=== PATIENT | female | born 1955 ===

== ENCOUNTER → 2018-06-23 09:32 | Day surgery (SDC) | payer BC ==
[~2018-06-23 09:32] MED LIST: Buffered Lidocaine 0.9% SYRIN* 5 ML/SYR SYRINGE INTRADERM ONE; Buffered Lidocaine 0.9% SYRIN* 5 ML/SYR SYRINGE ONE; Clindamycin 900 MG/D5W BAG(*) 900 MG/50 ML BAG IVPB ONE; DiMENhydriNATE IV* 50 MG/ML VIAL IV PUSH PRN; EPHEDrine (Pressors)* 50 MG/ML VIAL ONE; HYDROcodone/ACETAMIN 5-325 MG* 1 TAB ONE; HYDROcodone/ACETAMIN 5-325 MG* 1 TAB PO PRN; Ketorolac INJ* 30 MG/ML 1 ML VIAL ONE; Lidocaine 2% PF * 5 ML VIAL ONE; Lidocaine 2% PF* 10 ML AMP ONE; Midazolam* 1 MG/ML 5 ML VIAL (5 MG) ONE; Naloxone* 0.4 MG/ML 1 ML VIAL IV PRN; Ondansetron INJ* 2 MG/ML VIAL ONE; Propofol* 10 MG/ML 20 ML BTL IV PUSH ONE; fentaNYL* 50 MCG/ML 2 ML VIAL (100 MCG VIAL) IV PRN; fentaNYL* 50 MCG/ML 2 ML VIAL (100 MCG VIAL) ONE; oxyCODONE/Acetamin 5/325 MG* TAB PO PRN
[2018-06-23 14:49] VITALS: BP 108/58
--- NOTE | 2018-06-24 09:34 | OP ---
DATE OF OPERATION: 06/23/18 - FORMER[facility] DATE OF : 53 SURGEON: Junito Wiseman MD CARPET INSPECTOR: NURY Song PRE-OP DIAGNOSIS: Left hallux valgus with degenerative arthritis and metatarsalgia. POST-OP DIAGNOSIS: Left hallux valgus with degenerative arthritis and metatarsalgia. OPERATIVE PROCEDURE: Left first MTP joint fusion with Jeannine osteotomy, second metatarsal. DESCRIPTION OF PROCEDURE: The patient was taken to the operating room, where a longitudinal incision was made over the dorsum of the first MTP joint. Medial flap was raised to expose the joint, which was flexed to allow the guidepin to be placed to first into the metatarsal head, then into proximal phalanx. Appropriate ball and socket reamers were used then to prepare the joint for arthrodesis. With the joint in neutral position, we pinned obliquely with a 30- mm long partially-threaded screw from the medial eminence to the dorsal lateral proximal phalanx. We then placed a standard left first MTP fusion plate over the dorsum, fixing this with a combination of locking and nonlocking screws. X- ray intra-operatively showed satisfactory position of the hardware. We then made a longitudinal incision just lateral to the second MTP joint with the extensor tendons reflected medially. We opened up the dorsum over the joint itself. The metatarsal head was divided distal dorsal to proximal plantar and a double cut was made to remove about a 2 mm wedge of bone, which in addition with a kerf of the saw cut lengthened around 3 mm or so. We then pinned this dorsally with a 13-mm twist-off screw and good fixation was obtained. X-rays intraoperatively verified satisfactory position of the bones and the hardware. We irrigated both medial and dorsal wounds, closing with 3-0 Vicryl 4-0 nylon and compression dressing applied. [id number]/[facility] #: [id number] [facility]
== END | disposition home or self-care (01) ==
LOC: OR 09:32
PROVIDERS: ATTEND Orthopaedic Surgery
DX: M19.072 Primary osteoarthritis, left ankle and foot (principal); M20.12 Hallux valgus (acquired), left foot; M77.42 Metatarsalgia, left foot; Z72.0 Tobacco use
CPT/HCPCS: 76000; C1713; J1885; J2001; J2250; J2405; J2704; J3010